=== PATIENT | female | born 1970 | race Two or more races ===

== ENCOUNTER → 2017-02-08 | Outpatient (CLI) | payer OTHER ==
--- NOTE | 2017-02-08 23:17 | ECWPNPC ---
PATIENT NAME: TOMMY DIAZ : 1970 GENDER: FEMALE VISIT DATE: 02/08/2017 DISCHARGE DATE: 02/08/17 1220 VISIT LOCKED DATE TIME: PHYSICIAN: RAVI CASAS RESOURCE: RAVI CASAS REASON FOR APPOINTMENT 1. BACK PAIN HISTORY OF PRESENT ILLNESS FALL RISK SCREENING: SCREENING :NO FALLS IN THE PAST YEAR PAIN SCREENING: PATIENT HAS A COMPLAINT OF ACUTE OR CHRONIC PAIN :YES TODAY'S VISIT: NOTES: PCP DR ALVES AT [facility]. PT REFERRED BY DR JORGE PÉREZ FOR CHRONIC LOW BACK PAIN.REPORTS SHE HAS HAD NO IMAGING DONE OF HER BACK. NOTES THAT THE PAIN IS CENTERED IN LOW BACK WITH RADIATION TOLEFT LEG AND FOOT. LEFT LEG AND FOOT CAN GO NUMB WHEN LAYING ON THE LEG OR STANDING. PAIN STARTED IN SEPTEMBER 2016 WITH NO KNOWN TRAUMAS OR INJURIES. HAS A INTERMITTANT SENSE OF WEAKNESS. NO COLOR CHANGE TO LEFT LEG/FOOT. NO PAIN OR NUMBNESS ON RIGHT. NO SADDLE NUMBNESS. HAS URINARY FREQ DUE TO DIABETES. HAS HAD NO PT. WAS STARTED ON TIZANIDINE FOR BACK PAIN BY PCP - THIS MAKES HER VERY SLEEPY SO SHE DOES NOT TAKE IT IN THE DAYTIME, AND STILL TOSSES AND TURNS AT NITE. REPORTS POOR SLEEP DUE TO BACK PAIN. DENIES RECENT FALLS. . CURRENT MEDICATIONS TAKING ZONISAMIDE 50 MG CAPSULE 1 CAPSULE ORALLY 50 MGS IN A.M./100 MGS Q HS TAKING PLAVIX 75 MG TABLET 1 TABLET ORALLY ONCE A DAY TAKING ASPIR-81 81 MG TABLET DELAYED RELEASE 1 TABLET ORALLY ONCE A DAY TAKING ZANAFLEX 2 MG TABLET 1 TABLET NEEDED ORALLY TWICE DAILY NEEDED TAKING ZOLOFT 100 MG TABLET 1 TABLET ORALLY ONCE A DAY TAKING METOPROLOL TARTRATE 50 MG TABLET 1 TABLET WITH FOOD ORALLY TWICE A DAY TAKING METFORMIN HCL ER 500 MG TABLET EXTENDED RELEASE 24 HOUR 1 TABLET WITH EVENING MEAL ORALLY BID TAKING COLACE 100 MG CAPSULE 1 CAPSULE NEEDED ORALLY ONCE A DAY TAKING SYMBICORT 160-4.5 MCG/ACT AEROSOL 2 PUFFS INHALATION TWICE A DAY TAKING ALBUTEROL SULFATE 1.25 MG/3ML NEBULIZATION SOLUTION 3 ML NEEDED INHALATION EVERY 8 HRS TAKING FERROUS SULFATE 325 (65 FE) MG TABLET DELAYED RELEASE 1 TABLET ORALLY ONCE A DAY TAKING AZELASTINE HCL 0.1 % SOLUTION 1 PUFF IN EACH NOSTRIL NASALLY TWICE A DAY TAKING ALPHAGAN P 0.1 % SOLUTION 1 DROP INTO AFFECTED EYE OPHTHALMIC THREE TIMES A DAY TAKING LATANOPROST 0.005 % SOLUTION 1 DROP INTO AFFECTED EYE IN THE EVENING OPHTHALMIC ONCE A DAY TAKING FLUOCINONIDE 0.05 % CREAM EXTERNALLY MEDICATION LIST REVIEWED AND RECONCILED WITH THE PATIENT PAST MEDICAL HISTORY 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 3 SON(S) - HEALTHY. ONE SISTER WITH MS, ONE SISTER WITH MIGRAINE HEADACHES, HEART DISEASE. SOCIAL HISTORY GENERAL: TOBACCO USE ARE YOU A:FORMER SMOKER SMOKED 1 PPD X 20 YEARS, QUIT 2008 LUNG CANCER SCREENING SMOKING STATUS:FORMER SMOKER ALCOHOL SCREENING POINTS1 INTERPRETATIONNEGATIVE RECREATIONAL DRUG USE DRUG USE?YES HOW OFTEN AND HOW MUCH? SMOKES MARIJUANA ON RARE OCCASIONS (LESS THAN ONCE A MONTH) CAFFEINE CAFFEINE USE?YES HOW OFTEN AND HOW MUCH? 1/2 CUP DAILY OCCUPATION: UNEMPLOYED. DIET: NO CONCENTRATED SWEETS, NO RED MEAT. EXERCISE: WALKS. MARITAL STATUS: . OTHERS AT HOME: CHILD, AND A BOYFRIEND. LANGUAGE LANGUAGES SPOKEN:HONDURAN EDUCATION LEVEL OF EDUCATION:NOT FINISHED HIGH SCHOOL LEARNING BARRIERS / SPECIAL NEEDS BARRIERS TO LEARNING? PT HAS HEARING IMPAIRMENT, HEARING AID IS BROKEN. HEARING IMPAIRED?YES PT HAS HEARING AID RIGHT EAR, STATES IS BROKEN VISION IMPAIRED?NO WEARS GLASSES, HAS CATARACTS COGNITIVELY IMPAIRED?NO READINESS TO LEARN?YES LEARNING PREFERENCES?NO NO PREFERENCES ADVANCE DIRECTIVES HEALTH CARE PROXY?YES TERI SHER, FATHER CONTACT # FOR [facility] [phone] DO YOU HAVE A COPY WITH YOU?NO DO YOU HAVE A DNR?NO WOULD YOU LIKE MORE INFORMATION?NO LIVING WILL?NO WOULD YOU LIKE MORE INFORMATION?NO POWER OF TECHNOLOGY ADVISOR?NO WOULD YOU LIKE MORE INFORMATION?NO HOSPITALIZATION/MAJOR DIAGNOSTIC PROCEDURE WITH SURGERIES REVIEW OF SYSTEMS CONSTITUTIONAL: ANY CHANGE IN YOUR MEDICAL CONDITION? NO . CHILLS NO . FEVER NO . INFECTION: DO YOU HAVE NEW INFECTIONS? YES UTI . DO YOU HAVE HISTORY OF MRSA? NO . MUSCULOSKELETAL: ANY NEW PATTERNS OF PAIN OR NUMBNESS? NO . SYTEMIC LUPUS NO . GASTROENTEROLOGY: ANY NEW CHANGE IN BOWEL CONTROL? NO . BARRETTS ESOPHAGUS NO . CIRRHOSIS NO . HEPATITIS NO . LIVER FAILURE NO . ACID REFLUX NO . UNEXPLAINED WEIGHT LOSS NO . GENITOURINARY: ANY NEW CHANGE IN BLADDER CONTROL? NO . IS THERE A CHANCE YOU COULD BE ? NO . HEMATOLOGY/LYMPH: DO YOU TAKE ANY BLOOD THINNERS? (FOR EXAMPLE- COUMADIN, PLAVIX, AGGRENOX, PLATEL, PRADAXA, OR XARELTO) YES - PLAVIX . WHEN WAS YOUR LAST DOSE? DATE: TIME: . LOW PLATELET COUNT NO . SICKLE CELL DISEASE NO . VON WILLIEBRANDS NO . FACTOR V LEIDEN NO . THALLASEMIA NO . ANEMIA YES . EASY BRUISING NO . NEUROLOGY: HAVE YOU FALLEN IN THE PAST 6 MONTHS? NO . ANY NEW EXTREMITY NUMBNESS OR WEAKNESS? YES CARPAL TUNNEL, SOME NUMBNESS WHEN SHE WALKS IN LEFT LEG FROM HIP TO FOOT. PER PT, DR PÉREZ STATES IT IS DUE TO POOR CIRCULATION . HEAD INJURY NO . DEMENTIA NO . CEREBRAL PALSY NO . MULTIPLE SCLEROSIS NO . DIZZINESS NO . HEADACHE ASSOCIATED WITH PHOTOPHOBIA, INTERMITTENT, POUNDING, SEVERE, SHARP, THROBBING, ADMITS . STROKES NO . VERTIGO NO . CARDIOLOGY: DO YOU HAVE A PACEMAKER OR DEFIBRILLATOR? NO . ANGINA NO . HEART ATTACK YES X 3 . HEART SURGERY YES, BYPASS GRAFTS, STENTS PLACED. FOLLOWS WITH DR LONGO . CONGESTIVE HEART FAILURE/FLUID OVERLOAD NO . CHEST PAIN NO . HIGH BLOOD PRESSURE ON MEDICATION(S) . IRREGULAR HEART BEAT NO . RESPIRATORY: HAVE YOU BEEN SICK IN THE PAST WEEK? NO . FEVER NO . FLU LIKE SYMPTOMS? NO . CPAP NO . BYPAP NO . ASTHMA YES . EMPHYSEMA NO . CHRONIC LUNG DISEASES YES COPD . SHORTNESS OF BREATH ON EXERTION NO . COUGH NO . SNORING NO . INTEGUMENTARY: DO YOU HAVE ANY RASHES OR OPEN SORES? YES PSORIASIS . ALLERGIC/IMMUNO: ARE YOU ALLERGIC TO SHELLFISH OR IV DYE? YES . ANY NEW ALLERGIES? NO . PSYCHIATRIC: DO YOU HAVE THOUGHTS OF HURTING YOURSELF OR SOMEONE ELSE? NO . ARE YOU ABUSED, NEGLECTED, OR IN AN UNSAFE ENVIRONMENT? NO . ENDOCRINOLOGY: ARE YOU DIABETIC? YES - IMPROVING . THYROID DISORDER NO . OTHER: DO YOU NEED ANY PRESCRIPTIONS? NO . IF YES, PLEASE LIST: ____ . ANY NEW PROBLEMS WITH YOUR MEDICATIONS? NO . WHEN DID YOU LAST EAT? ____ . WHEN DID YOU LAST DRINK? ____ . WHAT DID YOU LAST DRINK? ____ . NAME OF PERSON DRIVING YOU HOME? ____ . DO YOU HAVE ANY OTHER QUESTIONS OR CONCERNS YES WOULD LIKE TO DISCUSS SOMETHING FOR HER BACK PAIN . PSYCHOLOGY: BECKS DEPRESSION INVENTORY . DENIES SUICIDAL OR HOMICIDAL IDEATION . REVIEWED BY: PROVIDER: RAVI MELARA . VITAL SIGNS WT 196 LBS, HT 62 IN, BMI 35.84 INDEX, BP 111/75 MM HG, HR 64 /MIN, RR 18 /MIN, TEMP 98.3 F, OXYGEN SAT % 96%, SAFE IN ENV? (Y/N) YES, NA INITIALS 10:43, REVIEWED BY: MAGGIE. EXAMINATION GENERAL EXAMINATION: PSYCHALERT , ORIENTED X 3 , APPROPRIATE MOOD AND AFFECT , GOOD EYE CONTACT, TALKATIVE. HEENT:EDENTOUS, NORMOCEPHALIC, NO LYPHADENOPATHY, NO THYROMEGLY. LUNGS:CLEAR TO AUSCULTATION BILATERALLY, NO WHEEZES, RALES OR RHONCHI. HEART:HEART RATE IRREGULAR, NORMAL S1S2, NO MURMURS, CLICK OR RUBS, NO CAROTID BRUITS. MUSCULOSKELETAL:MUSCLE STRENGTH TESTING 5/5 BILATERAL UPPER EXTREMITIES, AND RIGHT LOWER EXTREMITY. MUSCLE STRENGTH 5-/5 LEFT LOWER EXTREMITY, DISTALLY AND PROXIMALLY. CAN FLEX TO GREATER ATHAN 90 DEGREES AND TOUCH HANDS TO THE FLOOR. COMPLAINS OF STFFNESS AND GRABBING PAIN WHEN RISE BACK TO FULL UPRIGHT POSITION. ABLE TO ROTATE SIDE TO SIDE WITHOUT DIFFICULTY. POSTURE UPRIGHT. GAIT RAPID, NON ANTALGIC. POINT TENDERNESS OVER LUMBAR SPINOUS PROCESSES AND OVER LEFT SACRAL ILIAC JOINT. . EXTREMITIES:NO EDEMA, PULSES 2 PLUS BILATERALLY. SKIN:MULTIPLE DISCREET LESION IN VARIOUS STAGES OF HEELING NOTED CARMINA THE UPPER BACK, ARMS AND FACE.. NEUROLOGIC EXAM:DECREASED SENSATION LEFT LEG FROM THIGH TO FOOT.O SENSORY CHANGES NOTED ON THE RIGHT. DTR 2+ BUE, 3+BLE. NO CLONUS PLANTAR RESPONSE FLEXOR. ASSESSMENTS LUMBAGO WITH SCIATICA, LEFT SIDE - M54.42 (PRIMARY) OTHER CHRONIC PAIN - G89.29 LUMBAR RADICULOPATHY - M54.16 TREATMENT LUMBAGO WITH SCIATICA, LEFT SIDE [facility] MRI SPINE, L.S. WITHOUT [id number] 02/08/2017 12:16:24 PM > LOW BACK PAIN /LEFT LEG RADICULOPATHY NOTES: START PHYSICAL THERAPY - CAN DO THIS IN [place]. CLINICAL NOTES: MS DIAZ CAN NOT TAKE NSAIDS DUE TO HER CARDIAC STATUS AND BECAUSE SHE IS ON BLOODTHINNERS. SHE HAS BEEN ON TIZANIDINE FOR 3 MONTHS BUT THIS IS INEFFECTIVE. SHE WILL BE STARTING PHYSUCAL THERAPY. WE ARE REQUESTING AUTH FOR MRI OF LUMBAR SPINE TO BETTER EVALUATE THE CAUSES OF HER PAIN AND RADICULAR SYMPTOMS. SUSPECT LEFT L5 NERVE ROOT COMPRESSION. WILL EVALUATE FOR POSSIBLE INTERVENTIONAL TREATMENT WITH THE EVIDENCE OF THE MRI. PROCEDURE CODES FA211 ESTABILISHED PATIENT [facility] FACILITY CHARGE DISPOSITION & COMMUNICATION FOLLOW UP 1 MONTH (REASON: NEED AUTH FOR MRI LS SPINE. JSOEPH FOR EMG/NCS DONE WITH DR PÉREZ) ELECTRONICALLY SIGNED BY KATY BLAIR ON 02/08/2017 AT 01:49 PM EDT DISCLAIMER : THIS IS A VISIT SUMMARY EXTRACTED FROM THE [employer] CHART. IT IS NOT A COPY OF THE [employer] PROGRESS NOTE. YULIANA
== END ==
LOC: M PAIN 11:20
PROVIDERS: ATTEND Nurse Practitioner Family
DX: M54.42 Lumbago with sciatica, left side (principal); G89.29 Other chronic pain; M54.16 Radiculopathy, lumbar region; Z79.01 Long term (current) use of anticoagulants; Z79.82 Long term (current) use of aspirin; Z79.899 Other long term (current) drug therapy; Z87.891 Personal history of nicotine dependence; Z91.041 Radiographic dye allergy status

== ENCOUNTER → 2017-03-08 | Outpatient (CLI) | payer OTHER ==
[~2017-03-08] MED LIST: ASPI81TA18; ATOR80TA59; AZIT500T2 PO; CLOP75TA2; DOCQ100C; FERR1TAB8; FOLI1TAB4; GLIP1TAB51 PO; METF500T13 PO; METO50TA7; SERT-138; TIZA4CAP3 PO; TOPI25TA10; TRAM50TA2; ZONI100C2 PO; ZONI50CA3 PO
--- NOTE | 2017-03-13 00:56 | ECWPNPC ---
PATIENT NAME: TOMMY DIAZ : 1970 GENDER: FEMALE VISIT DATE: 03/08/2017 DISCHARGE DATE: 03/08/17 1109 VISIT LOCKED DATE TIME: PHYSICIAN: RAVI CASAS RESOURCE: RAVI CASAS REASON FOR APPOINTMENT 1. BACK PAIN HISTORY OF PRESENT ILLNESS HISTORY OF PRESENT ILLNESS: PAIN THE PATIENT DESCRIBES THE PAIN... FALL RISK SCREENING: SCREENING :NO FALLS IN THE PAST YEAR TODAY'S VISIT: NOTES: RTES PAIN LEVEL TODAY 05/09. NOTES PAIN IS CENTERED IN LOW BACK WITH RADIATION TO BUTTUCKS AND INTO LEGS BILATERALLY. DESCRIBES PAIN ACHING, TENDER, THROBBING AND SORE. IS HAVING DIFFICULT TIME STANDING FOR ANY PERIOD OR GOING ABOUT ACTIVITIES OF DAILY LIVING.. CURRENT MEDICATIONS TAKING ZONISAMIDE 50 MG CAPSULE 1 CAPSULE ORALLY 50 MGS IN A.M./100 MGS Q HS TAKING PLAVIX 75 MG TABLET 1 TABLET ORALLY ONCE A DAY TAKING ASPIR-81 81 MG TABLET DELAYED RELEASE 1 TABLET ORALLY ONCE A DAY TAKING ZANAFLEX 2 MG TABLET 1 TABLET NEEDED ORALLY TWICE DAILY NEEDED TAKING ZOLOFT 100 MG TABLET 1 TABLET ORALLY ONCE A DAY TAKING METOPROLOL TARTRATE 50 MG TABLET 1 TABLET WITH FOOD ORALLY TWICE A DAY TAKING METFORMIN HCL ER 500 MG TABLET EXTENDED RELEASE 24 HOUR 1 TABLET WITH EVENING MEAL ORALLY BID TAKING COLACE 100 MG CAPSULE 1 CAPSULE NEEDED ORALLY ONCE A DAY TAKING SYMBICORT 160-4.5 MCG/ACT AEROSOL 2 PUFFS INHALATION TWICE A DAY TAKING ALBUTEROL SULFATE 1.25 MG/3ML NEBULIZATION SOLUTION 3 ML NEEDED INHALATION EVERY 8 HRS TAKING FERROUS SULFATE 325 (65 FE) MG TABLET DELAYED RELEASE 1 TABLET ORALLY ONCE A DAY TAKING AZELASTINE HCL 0.1 % SOLUTION 1 PUFF IN EACH NOSTRIL NASALLY TWICE A DAY TAKING ALPHAGAN P 0.1 % SOLUTION 1 DROP INTO AFFECTED EYE OPHTHALMIC THREE TIMES A DAY TAKING LATANOPROST 0.005 % SOLUTION 1 DROP INTO AFFECTED EYE IN THE EVENING OPHTHALMIC ONCE A DAY TAKING FLUOCINONIDE 0.05 % CREAM EXTERNALLY PAST MEDICAL HISTORY 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 3 SON(S) - HEALTHY. ONE SISTER WITH MS, ONE SISTER WITH MIGRAINE HEADACHES, HEART DISEASE. SOCIAL HISTORY GENERAL: TOBACCO USE ARE YOU A:FORMER SMOKER SMOKED 1 PPD X 20 YEARS, QUIT 2008 LUNG CANCER SCREENING SMOKING STATUS:FORMER SMOKER ALCOHOL SCREENING DID YOU HAVE A DRINK CONTAINING ALCOHOL IN THE PAST YEAR?YES HOW OFTEN DID YOU HAVE A DRINK CONTAINING ALCOHOL IN THE PAST YEAR?MONTHLY OR LESS (1 POINT) HOW MANY DRINKS DID YOU HAVE ON A TYPICAL DAY WHEN YOU WERE DRINKING IN THE PAST YEAR?1 OR 2 (0 POINTS) HOW OFTEN DID YOU HAVE SIX OR MORE DRINKS ON ONE OCCASION IN THE PAST YEAR?NEVER (0 POINTS) POINTS1 INTERPRETATIONNEGATIVE RECREATIONAL DRUG USE DRUG USE?YES HOW OFTEN AND HOW MUCH? SMOKES MARIJUANA ON RARE OCCASIONS (LESS THAN ONCE A MONTH) CAFFEINE CAFFEINE USE?YES HOW OFTEN AND HOW MUCH? 1/2 CUP DAILY OCCUPATION: UNEMPLOYED. DIET: NO CONCENTRATED SWEETS, NO RED MEAT. EXERCISE: WALKS. MARITAL STATUS: . OTHERS AT HOME: CHILD, AND A BOYFRIEND. LANGUAGE LANGUAGES SPOKEN:POLISH EDUCATION LEVEL OF EDUCATION:NOT FINISHED HIGH SCHOOL LEARNING BARRIERS / SPECIAL NEEDS BARRIERS TO LEARNING? PT HAS HEARING IMPAIRMENT, HEARING AID IS BROKEN. HEARING IMPAIRED?YES PT HAS HEARING AID RIGHT EAR, STATES IS BROKEN VISION IMPAIRED?NO WEARS GLASSES, HAS CATARACTS COGNITIVELY IMPAIRED?NO READINESS TO LEARN?YES LEARNING PREFERENCES?NO NO PREFERENCES ADVANCE DIRECTIVES HEALTH CARE PROXY?YES TERI SHER, FATHER CONTACT # FOR [facility] [phone] DO YOU HAVE A COPY WITH YOU?NO DO YOU HAVE A DNR?NO WOULD YOU LIKE MORE INFORMATION?NO LIVING WILL?NO WOULD YOU LIKE MORE INFORMATION?NO POWER OF SEWER INSPECTOR?NO WOULD YOU LIKE MORE INFORMATION?NO HOSPITALIZATION/MAJOR DIAGNOSTIC PROCEDURE WITH SURGERIES REVIEW OF SYSTEMS REVIEWED BY: PROVIDER: RAVI MELARA . CONSTITUTIONAL: ANY CHANGE IN YOUR MEDICAL CONDITION? ER ON SAT FOR PAIN IN [place]. GAVE HER TRAMADOL . CHILLS NO . FEVER NO . INFECTION: DO YOU HAVE NEW INFECTIONS? NO . DO YOU HAVE HISTORY OF MRSA? NO . MUSCULOSKELETAL: ANY NEW PATTERNS OF PAIN OR NUMBNESS? IN [place] NOW . GASTROENTEROLOGY: ANY NEW CHANGE IN BOWEL CONTROL? NO . GENITOURINARY: ANY NEW CHANGE IN BLADDER CONTROL? NO . IS THERE A CHANCE YOU COULD BE ? NO . HEMATOLOGY/LYMPH: DO YOU TAKE ANY BLOOD THINNERS? (FOR EXAMPLE- COUMADIN, PLAVIX, AGGRENOX, PLATEL, PRADAXA, OR XARELTO) YES / PLAVIX . WHEN WAS YOUR LAST DOSE? DATE: TIME: . NEUROLOGY: HAVE YOU FALLEN IN THE PAST 6 MONTHS? NO . ANY NEW SEIZURES? DENIES ANY RECENT SEIZURES OR EPISODES OF ALTERED MENTAL STATUS . ANY NEW EXTREMITY NUMBNESS OR WEAKNESS? NO . CARDIOLOGY: DO YOU HAVE A PACEMAKER OR DEFIBRILLATOR? NO . RESPIRATORY: HAVE YOU BEEN SICK IN THE PAST WEEK? NO . FEVER NO . FLU LIKE SYMPTOMS? NO . COUGH NO . INTEGUMENTARY: DO YOU HAVE ANY RASHES OR OPEN SORES? PSORIASIS . ALLERGIC/IMMUNO: ARE YOU ALLERGIC TO SHELLFISH OR IV DYE? IV DYE . ANY NEW ALLERGIES? NO . PSYCHIATRIC: DO YOU HAVE THOUGHTS OF HURTING YOURSELF OR SOMEONE ELSE? NO . ARE YOU ABUSED, NEGLECTED, OR IN AN UNSAFE ENVIRONMENT? NO . ENDOCRINOLOGY: ARE YOU DIABETIC? NO . OTHER: DO YOU NEED ANY PRESCRIPTIONS? YES . IF YES, PLEASE LIST: FOR PAIN . ANY NEW PROBLEMS WITH YOUR MEDICATIONS? NO . WHEN DID YOU LAST EAT? ____ . WHEN DID YOU LAST DRINK? ____ . WHAT DID YOU LAST DRINK? ____ . NAME OF PERSON DRIVING YOU HOME? ____ . DO YOU HAVE ANY OTHER QUESTIONS OR CONCERNS NO . VITAL SIGNS WT 198.8 LBS, HT 62 IN, BMI 36.36 INDEX, BP 121/65 MM HG, HR 56 /MIN, RR 16 /MIN, TEMP 97.8 F, OXYGEN SAT % 94%, NA INITIALS TL 1022, REVIEWED BY: NL. EXAMINATION GENERAL EXAMINATION: PSYCHALERT , ORIENTED X 3 , APPROPRIATE MOOD AND AFFECT , GOOD EYE CONTACT, TALKATIVE. LUNGS:CLEAR TO AUSCULTATION BILATERALLY, NO WHEEZES, RALES OR RHONCHI. HEART:HEART RATE IRREGULAR, . MUSCULOSKELETAL:MUSCLE STRENGTH TESTING 5/5 BILATERAL UPPER EXTREMITIES, AND RIGHT LOWER EXTREMITY. MUSCLE STRENGTH 5-/5 LEFT LOWER EXTREMITY, DISTALLY AND PROXIMALLY. E FLOOR. POSTURE UPRIGHT, STIFF . GAIT NON ANTALGIC. POINT TENDERNESS OVER LUMBAR SPINOUS PROCESSES AND OVER LEFT SACRAL ILIAC JOINT. POSITIVE AMAIRANI SIGN LEFT. NEUROLOGIC EXAM:DECREASED SENSATION LEFT LEG FROM THIGH TO FOOT. NO SENSORY CHANGES NOTED ON THE RIGHT. DTR 2+ BUE, 3+BLE. . DIAGNOSTIC TESTS REVIEWEDMRI OF LUMBAR SPINE COMPLETED ON 03/03/17 REVIEWED - DEMONSTRATES L5-S1 BROADBASED DISC PROTRUSION WITH MILD CENTRAL CANAL STENOSIS AND MODERATE BILATERAL LATERAL RECESS NARROWINGS. ASSESSMENTS LUMBAR DISC DISPLACEMENT WITHOUT MYELOPATHY - M51.26 (PRIMARY) LUMBAGO WITH SCIATICA, LEFT SIDE - M54.42 OTHER CHRONIC PAIN - G89.29 LUMBAR RADICULOPATHY - M54.16 TREATMENT LUMBAGO WITH SCIATICA, LEFT SIDE START PREDNISONE TABLET, 20 MG, 1 TABLET, ORALLY, TWICE A DAY FOR 3 DAYS THEN 1/2 TAB TWICE A DAY UNTIL GONE, 30 DAY(S), 9, REFILLS 0 START TRAMADOL HCL TABLET, 50 MG, 1 TABLET NEEDED, ORALLY, EVERY 4 -6 HRS PRN PAIN MDD=3, 30 DAY(S), 90, REFILLS 0 NOTES: MRI SHOWS: L5-S1 BROAD BASED DISC PROTRUSION WITH MILDCENTRAL CANAL STENOSIS AND MODERATE BILATERAL RECESS NARROWNG.TALK TO DR ALVES ABOUT LEFT GREAT TOE ORE AREA. WILL ASK FOR AUTH TO GET PLAVIX ON HOLD FOR 7 DAYS FOR EPIDURAL INJECTION. WILL REQUEST AUTH FOR INTRALAMINAR LUMBAR EPIDURAL INJECTION. PREVENTIVE MEDICINE GAVE INFO ON PREDNISONE. PROCEDURE CODES FA211 ESTABILISHED PATIENT [facility] FACILITY CHARGE DISPOSITION & COMMUNICATION FOLLOW UP 3-4 WEEKS (REASON: WILL REQUEST AUTH FOR INTRALAMINAR LUMBAR EPIDURAL INJECTION) ELECTRONICALLY SIGNED BY KATY BLAIR ON 03/12/2017 AT 08:30 AM EDT DISCLAIMER : THIS IS A VISIT SUMMARY EXTRACTED FROM THE [employer] CHART. IT IS NOT A COPY OF THE [employer] PROGRESS NOTE. MTDD
== END ==
LOC: M PAIN 10:20
PROVIDERS: ATTEND Nurse Practitioner Family
DX: M51.26 Other intervertebral disc displacement, lumbar region (principal); M54.42 Lumbago with sciatica, left side; G89.29 Other chronic pain; M54.16 Radiculopathy, lumbar region; Z79.82 Long term (current) use of aspirin; Z79.84 Long term (current) use of oral hypoglycemic drugs; Z79.899 Other long term (current) drug therapy; Z79.891 Long term (current) use of opiate analgesic; Z91.041 Radiographic dye allergy status

== ENCOUNTER → 2017-03-30 | Outpatient (CLI) | payer OTHER ==
--- NOTE | 2017-04-13 00:41 | ECWPNPC ---
PATIENT NAME: TOMMY DIAZ : 1970 GENDER: FEMALE VISIT DATE: 03/30/2017 DISCHARGE DATE: 03/30/17 1413 VISIT LOCKED DATE TIME: PHYSICIAN: MARGE BRAVO RESOURCE: MARGE BRAVO REASON FOR APPOINTMENT 1. LOW BACK PAIN HISTORY OF PRESENT ILLNESS HISTORY OF PRESENT ILLNESS: PAIN THE PATIENT DESCRIBES THE PAIN... 46 YEAR OLD FEMALE PATIENT WITH HISTORY OF CHRONIC LOW BACK PAIN. PATIENT DESCRIBES TO THE PAIN ACHING, TENDER, AND THROBBING WITH A PAIN SCORE OF 8/10. CURRENTLY THE PATIENT IS USING ZANAFLEX AND TRAMADOL TO AID IN PAIN RELIEF. PATIENT STATES THAT SHE HAS RADICULAR PAIN DOWN THE LEGS. PATIENT DENIES UNEXPLAINABLE WEIGHT LOSS, FEVER, CHILLS, NEW CHANGES ON HER URINARY OR BOWEL CONTROL. FALL RISK SCREENING: SCREENING :NO FALLS IN THE PAST YEAR CURRENT MEDICATIONS TAKING ZONISAMIDE 50 MG CAPSULE 1 CAPSULE ORALLY 50 MGS IN A.M./100 MGS Q HS, NOTES: 03-30 TAKING PLAVIX 75 MG TABLET 1 TABLET ORALLY ONCE A DAY, NOTES: 899 TAKING ASPIR-81 81 MG TABLET DELAYED RELEASE 1 TABLET ORALLY ONCE A DAY, NOTES: 03-30-17899 TAKING ZANAFLEX 2 MG TABLET 1 TABLET NEEDED ORALLY TWICE DAILY NEEDED, NOTES: 03-30-17899 TAKING ZOLOFT 100 MG TABLET 1 TABLET ORALLY ONCE A DAY, NOTES: 03-30-17899 TAKING METOPROLOL TARTRATE 50 MG TABLET 1 TABLET WITH FOOD ORALLY TWICE A DAY, NOTES: 03-30-17799 TAKING METFORMIN HCL ER 500 MG TABLET EXTENDED RELEASE 24 HOUR 1 TABLET WITH EVENING MEAL ORALLY BID, NOTES: 03-30-17899 TAKING COLACE 100 MG CAPSULE 1 CAPSULE NEEDED ORALLY ONCE A DAY, NOTES: 03-30-17899 TAKING SYMBICORT 160-4.5 MCG/ACT AEROSOL 2 PUFFS INHALATION TWICE A DAY, NOTES: 03-29-17899 TAKING ALBUTEROL SULFATE 1.25 MG/3ML NEBULIZATION SOLUTION 3 ML NEEDED INHALATION EVERY 8 HRS, NOTES: 7NOT IN A WHILE TAKING FERROUS SULFATE 325 (65 FE) MG TABLET DELAYED RELEASE 1 TABLET ORALLY ONCE A DAY, NOTES: 03-30-17899 TAKING AZELASTINE HCL 0.1 % SOLUTION 1 PUFF IN EACH NOSTRIL NASALLY TWICE A DAY, NOTES: 03-30-17899 TAKING ALPHAGAN P 0.1 % SOLUTION 1 DROP INTO AFFECTED EYE OPHTHALMIC THREE TIMES A DAY, NOTES: 03-29-17899 TAKING LATANOPROST 0.005 % SOLUTION 1 DROP INTO AFFECTED EYE IN THE EVENING OPHTHALMIC ONCE A DAY, NOTES: 03-29-17899 TAKING FLUOCINONIDE 0.05 % CREAM EXTERNALLY , NOTES: 03-29-17899 TAKING PREDNISONE 20 MG TABLET 1 TABLET ORALLY TWICE A DAY FOR 3 DAYS THEN 1/2 TAB TWICE A DAY UNTIL GONE, NOTES: 03-08-17899 TAKING TRAMADOL HCL 50 MG TABLET 1 TABLET NEEDED ORALLY EVERY 4 -6 HRS PRN PAIN MDD=3, NOTES: 03-30-17899 MEDICATION LIST REVIEWED AND RECONCILED WITH THE PATIENT PAST MEDICAL HISTORY 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 CONSTITUTIONAL: ANY CHANGE IN YOUR MEDICAL CONDITION? NO . CHILLS NO . FEVER NO . INFECTION: DO YOU HAVE NEW INFECTIONS? NO . DO YOU HAVE HISTORY OF MRSA? NO . MUSCULOSKELETAL: ANY NEW PATTERNS OF PAIN OR NUMBNESS? NO . GASTROENTEROLOGY: ANY NEW CHANGE IN BOWEL CONTROL? NO . GENITOURINARY: ANY NEW CHANGE IN BLADDER CONTROL? NO . IS THERE A CHANCE YOU COULD BE ? NO . HEMATOLOGY/LYMPH: DO YOU TAKE ANY BLOOD THINNERS? (FOR EXAMPLE- COUMADIN, PLAVIX, AGGRENOX, PLATEL, PRADAXA, OR XARELTO) NO . WHEN WAS YOUR LAST DOSE? DATE: TIME: . NEUROLOGY: HAVE YOU FALLEN IN THE PAST 6 MONTHS? NO . ANY NEW EXTREMITY NUMBNESS OR WEAKNESS? NO . CARDIOLOGY: DO YOU HAVE A PACEMAKER OR DEFIBRILLATOR? NO . RESPIRATORY: HAVE YOU BEEN SICK IN THE PAST WEEK? NO . FEVER NO . FLU LIKE SYMPTOMS? NO . COUGH NO . INTEGUMENTARY: DO YOU HAVE ANY RASHES OR OPEN SORES? NO . ALLERGIC/IMMUNO: ARE YOU ALLERGIC TO SHELLFISH OR IV DYE? NO . ANY NEW ALLERGIES? NO . PSYCHIATRIC: DO YOU HAVE THOUGHTS OF HURTING YOURSELF OR SOMEONE ELSE? NO . ARE YOU ABUSED, NEGLECTED, OR IN AN UNSAFE ENVIRONMENT? NO . ENDOCRINOLOGY: ARE YOU DIABETIC? NO . OTHER: DO YOU NEED ANY PRESCRIPTIONS? NO . IF YES, PLEASE LIST: ____ . ANY NEW PROBLEMS WITH YOUR MEDICATIONS? NO . WHEN DID YOU LAST EAT? ____ . WHEN DID YOU LAST DRINK? ____ . WHAT DID YOU LAST DRINK? ____ . NAME OF PERSON DRIVING YOU HOME? ____ . DO YOU HAVE ANY OTHER QUESTIONS OR CONCERNS NO . VITAL SIGNS WT 198 LBS, HT 62 IN, BMI 36.21 INDEX, BP 103/58 MM HG, HR 54 /MIN, RR 16 /MIN, TEMP 98.6 F, OXYGEN SAT % 96%, SAFE IN ENV? (Y/N) YES, NA INITIALS SC 11:53, REVIEWED BY: KG. EXAMINATION : PATIENT IS ALERT O X 3 AND COOPERATIVE. TENDERNESS IN THE LOWER BACK AND PARASPINAL MUSCLE GROUP. MRI DONE ON 03/03/17 SHOWS A DISC PROTRUSION AT L5-S1 WIT CANAL STENOSIS. ASSESSMENTS INTERVERTEBRAL DISC DISORDERS WITH RADICULOPATHY, LUMBOSACRAL REGION - M51.17 (PRIMARY) TREATMENT INTERVERTEBRAL DISC DISORDERS WITH RADICULOPATHY, LUMBOSACRAL REGION NOTES: WE DISCUSSED SEVERAL ISSUES WITH MRS. DIAZ'S PAIN MANAGEMENT CASE. AT THIS TIME THE PATIENT WILL CONTINUE WITH THE SAME MEDICATION REGIME BEFORE. DUE TO THE RADICULAR PAIN AND THE DISC PROTRUSION THE PATIENT IS A GOOD CANDIDATE FOR THE LUMBAR EPIDURAL. WE DISCUSSED THE RISKS, BENENFITS, AND ALTNERATIVES OF THE INJECTION AND THE PATIENT WOULD LIKE TO PROCEED. PATIENT WAS REMINDED TO STOP PLAVIX 7 DAYS PRIOR TO THE INJECTION. INSTRUCTIONS WERE GIVEN, QUESTIONS WERE ANSWERED, PATIENT REPORTS UNDERSTANDING AND AGREES WITH THE PLAN. I, MELINA SCHMIDT, DOCUMENTED THE ABOVE INFORMATION ACTING A SCRIBE FOR DR. BRAVO. I HAVE REVIEWED THE ABOVE DOCUMENT, WRITTEN BY MELINA MORIN AND I VERIFY THAT IT IS ACCURATE. PROCEDURE CODES FA211 ESTABILISHED PATIENT [facility] FAC[facility] CHARGE [id number] DOC MEDS VERIFIED W/PT OR RE [id number] PAIN ASSESS POS TOOL F/U PLAN DOC DISPOSITION & COMMUNICATION FOLLOW UP LESI AFTER APPROVAL ELECTRONICALLY SIGNED BY MARGE BRAVO MD ON 04/12/2017 AT 08:28 PM EDT DISCLAIMER : THIS IS A VISIT SUMMARY EXTRACTED FROM THE [employer] CHART. IT IS NOT A COPY OF THE [employer] PROGRESS NOTE. YULIANA
== END ==
LOC: M PAIN 11:40
PROVIDERS: ATTEND Anesthesiology
DX: G89.29 Other chronic pain (principal); M51.17 Intervertebral disc disorders with radiculopathy, lumbosacral region; G43.909 Migraine, unspecified, not intractable, without status migrainosus; E11.9 Type 2 diabetes mellitus without complications; J44.9 Chronic obstructive pulmonary disease, unspecified; I10 Essential (primary) hypertension; E78.00 Pure hypercholesterolemia, unspecified; Z91.041 Radiographic dye allergy status; Z79.82 Long term (current) use of aspirin; Z79.84 Long term (current) use of oral hypoglycemic drugs; Z79.899 Other long term (current) drug therapy

== ENCOUNTER → 2017-05-05 | Outpatient (CLI) | payer OTHER ==
[~2017-05-05] MED LIST changes: +LIDOCAINE 1% SDV INJ 30 ML VIAL As Ordered ONE; +diazePAM 5 MG TAB As Ordered ONE; +methylPREDNISolone SUSP 40 MG/ML (DEPO-medrol) VIAL (J1030) As Ordered ONE; +oxyCODONE 5MG TAB As Ordered ONE
--- NOTE | 2017-05-05 14:15 | REP ---
Partial lumbar spine series: Three views . History: Injection procedure for pain. 10 seconds of fluoroscopy time is reported. Findings: A sequence of three fluoroscopically obtained last image hold procedural spot radiographs of the lumbar spine document needle position and contrast injection associated with injection procedure. Signed by Marcelo Newman MD 05/05/2017 02:06 P
--- NOTE | 2017-05-06 00:25 | ECWPNPC ---
PATIENT NAME: TOMMY DIAZ : 1970 GENDER: FEMALE VISIT DATE: 05/05/2017 DISCHARGE DATE: 05/05/17 1343 VISIT LOCKED DATE TIME: PHYSICIAN: MARGE BRAVO RESOURCE: MARGE BRAVO REASON FOR APPOINTMENT 1. LESI HISTORY OF PRESENT ILLNESS HISTORY OF PRESENT ILLNESS: PAIN THE PATIENT DESCRIBES THE PAIN... FALL RISK SCREENING: SCREENING :NO FALLS IN THE PAST YEAR CURRENT MEDICATIONS TAKING ZONISAMIDE 50 MG CAPSULE 1 CAPSULE ORALLY 50 MGS IN A.M./100 MGS Q HS, NOTES: 05/04/17799 TAKING PLAVIX 75 MG TABLET 1 TABLET ORALLY ONCE A DAY, NOTES: 04/27/17 1000 TAKING ASPIR-81 81 MG TABLET DELAYED RELEASE 1 TABLET ORALLY ONCE A DAY, NOTES: 05/04/17799 TAKING ZANAFLEX 2 MG TABLET 1 TABLET NEEDED ORALLY TWICE DAILY NEEDED, NOTES: 05/04/17799 TAKING ZOLOFT 100 MG TABLET 1 TABLET ORALLY ONCE A DAY, NOTES: 05/04/17799 TAKING METOPROLOL TARTRATE 50 MG TABLET 1 TABLET WITH FOOD ORALLY TWICE A DAY, NOTES: 05/04/17799 TAKING METFORMIN HCL ER 500 MG TABLET EXTENDED RELEASE 24 HOUR 1 TABLET WITH EVENING MEAL ORALLY BID, NOTES: 05/04/17799 TAKING COLACE 100 MG CAPSULE 1 CAPSULE NEEDED ORALLY ONCE A DAY, NOTES: 05/04/17799 TAKING SYMBICORT 160-4.5 MCG/ACT AEROSOL 2 PUFFS INHALATION TWICE A DAY, NOTES: 05/04/17799 TAKING ALBUTEROL SULFATE 1.25 MG/3ML NEBULIZATION SOLUTION 3 ML NEEDED INHALATION EVERY 8 HRS, NOTES: 7NOT IN A WHILE TAKING FERROUS SULFATE 325 (65 FE) MG TABLET DELAYED RELEASE 1 TABLET ORALLY ONCE A DAY, NOTES: 05/04/17799 TAKING AZELASTINE HCL 0.1 % SOLUTION 1 PUFF IN EACH NOSTRIL NASALLY TWICE A DAY, NOTES: NOT IN A WHILE TAKING ALPHAGAN P 0.1 % SOLUTION 1 DROP INTO AFFECTED EYE OPHTHALMIC THREE TIMES A DAY, NOTES: LAST MONTH TAKING LATANOPROST 0.005 % SOLUTION 1 DROP INTO AFFECTED EYE IN THE EVENING OPHTHALMIC ONCE A DAY, NOTES: LAST MONTH TAKING FLUOCINONIDE 0.05 % CREAM EXTERNALLY , NOTES: 05/04/17799 TAKING PREDNISONE 20 MG TABLET 1 TABLET ORALLY TWICE A DAY FOR 3 DAYS THEN 1/2 TAB TWICE A DAY UNTIL GONE, NOTES: 05/04/17799 TAKING TRAMADOL HCL 50 MG TABLET 1 TABLET NEEDED ORALLY EVERY 4 -6 HRS PRN PAIN MDD=3, NOTES: 05/04/17799 MEDICATION LIST REVIEWED AND RECONCILED WITH THE PATIENT PAST MEDICAL HISTORY 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 CONSTITUTIONAL: ANY CHANGE IN YOUR MEDICAL CONDITION? NO . CHILLS NO . FEVER NO . INFECTION: DO YOU HAVE NEW INFECTIONS? NO . DO YOU HAVE HISTORY OF MRSA? NO . MUSCULOSKELETAL: ANY NEW PATTERNS OF PAIN OR NUMBNESS? NO . GASTROENTEROLOGY: ANY NEW CHANGE IN BOWEL CONTROL? NO . GENITOURINARY: ANY NEW CHANGE IN BLADDER CONTROL? NO . IS THERE A CHANCE YOU COULD BE ? NO . HEMATOLOGY/LYMPH: DO YOU TAKE ANY BLOOD THINNERS? (FOR EXAMPLE- COUMADIN, PLAVIX, AGGRENOX, PLATEL, PRADAXA, OR XARELTO) NO . WHEN WAS YOUR LAST DOSE? DATE: TIME: . NEUROLOGY: HAVE YOU FALLEN IN THE PAST 6 MONTHS? NO . ANY NEW EXTREMITY NUMBNESS OR WEAKNESS? NO . CARDIOLOGY: DO YOU HAVE A PACEMAKER OR DEFIBRILLATOR? NO . RESPIRATORY: HAVE YOU BEEN SICK IN THE PAST WEEK? NO . FEVER NO . FLU LIKE SYMPTOMS? NO . COUGH NO . INTEGUMENTARY: DO YOU HAVE ANY RASHES OR OPEN SORES? YES, PT C/O PSORIASIS SORES ALL OVER . ALLERGIC/IMMUNO: ARE YOU ALLERGIC TO SHELLFISH OR IV DYE? NO . ANY NEW ALLERGIES? NO . PSYCHIATRIC: DO YOU HAVE THOUGHTS OF HURTING YOURSELF OR SOMEONE ELSE? NO . ARE YOU ABUSED, NEGLECTED, OR IN AN UNSAFE ENVIRONMENT? NO . ENDOCRINOLOGY: ARE YOU DIABETIC? YES . OTHER: DO YOU NEED ANY PRESCRIPTIONS? NO . IF YES, PLEASE LIST: ____ . ANY NEW PROBLEMS WITH YOUR MEDICATIONS? NO . WHEN DID YOU LAST EAT? ____ . WHEN DID YOU LAST DRINK? ____ . WHAT DID YOU LAST DRINK? ____ . NAME OF PERSON DRIVING YOU HOME? ____ . DO YOU HAVE ANY OTHER QUESTIONS OR CONCERNS NO . VITAL SIGNS WT 198 LBS, HT 62 IN, BMI 36.21 INDEX, BP 164/78 MM HG, HR 66 /MIN, RR 16 /MIN, TEMP 96.4 F, OXYGEN SAT % 96%, NA INITIALS SC 10:37, REVIEWED BY: VD. ASSESSMENTS INTERVERTEBRAL DISC DISORDER WITH RADICULOPATHY OF LUMBOSACRAL REGION - M51.17 (PRIMARY) PROCEDURES PRE PROCEDURE DIAGNOSIS LUMBAR DISC DISORDER WITH RADICULOPATHY POST PROCEDURE DIAGNOSIS LUMBAR DISC DISORDER WITH RADICULOPATHY PROCEDURE LUMBAR EPIDURAL STEROID INJECTION UNDER FLUOROSCOPIC GUIDANCE SURGEON DR. MARGE BRAVO MASTER CARPENTER NONE ANESTHESIA LOCAL PRE PROCEDURE NOTE THE PATIENT HAS A HISTORY OF CHRONIC LOW BACK PAIN. I EVALUATE THE PATIENT AND REVIEWED THE CHART. I WENT OVER THE RISKS, ALTERNATIVES, AND BENEFITS ASSOCIATED WITH THIS PROCEDURE. THE PATIENT WOULD LIKE TO PROCEED AND GIVE CONSENT TO PERFORMED THE PROCEDURE. THE PATIENT DENIES UNEXPLAINABLE WEIGHT LOSS, FEVER, CHILLS, OR NEW CHANGES IN URINARY OR BOWEL CONTROL. DESCRIPTION OF PROCEDURE THE PATIENT WAS BROUGHT TO THE PROCEDURE ROOM AND PLACED IN THE PRONE POSITION. THE LUMBOSACRAL AREA WAS CLEANED WITH BETADINE SOLUTION AND DRAPED ASEPTICALLY. THE PROCEDURE WAS DONE UNDER STERILE CONDITIONS. I CHECKED LATERALITY AND THE LEVEL WHERE THE PROCEDURE WAS GOING TO BE PERFORMED WITH THE PATIENT AND THE SUPPORTING STAFF AT THE MOMENT OF THE TIME OUT IN THE PROCEDURE ROOM. UNDER FLUOROSCOPIC GUIDANCE, THE TARGET POINT WAS SELECTED AT THE INTERLAMINAR LEVEL OF L5-S1. LIDOCAINE WAS USED TO NUMB THE SKIN AND THE SUBCUTANEOUS TISSUE BELOW IT. EPIDURAL TUOHY NEEDLE, 17-GAUGE, WAS ADVANCED UNDER FLUOROSCOPIC GUIDANCE AND FOLLOWING PATIENT FEEDBACK UNTIL THE EPIDURAL SPACE WAS REACHED, 7 CM DEEP INTO THE SKIN BY THE LOSS OF RESISTANCE TECHNIQUE. ISOVUE M DYE 30%, 0.25 ML, WAS INJECTED SHOWING ADEQUATE SPREAD OF THE DYE. THEN, A SOLUTION OF 3 ML OF NORMAL SALINE WITH DEPO-MEDROL 60 MG WAS INJECTED SLOWLY FOLLOWING PATIENT FEEDBACK. THERE WAS NO EVIDENCE OF BLOOD, PARESTHESIA OR CEREBROSPINAL FLUID DURING THE PROCEDURE. THE PATIENT WAS SENT TO THE RECOVERY ROOM. THE PATIENT WAS MOVING THE EXTREMITIES AND DOING WELL. THERE WAS NO COMPLICATION DURING THE PROCEDURE. FLUOROSCOPY TIME WAS 10 SECONDS. POST PROCEDURE NOTE THE PATIENT WILL BE SEEN IN A FOLLOW UP IN THE NEXT FEW WEEKS. INSTRUCTIONS WERE GIVEN, QUESTIONS WERE ANSWERED, AND THE PATIENT EXPRESSED UNDERSTANDING AND AGREES WITH THE PLAN. I, MELINA SCHMIDT, DOCUMENTED THE ABOVE INFORMATION ACTING A SCRIBE FOR DR. BRAVO. I HAVE REVIEWED THE ABOVE DOCUMENT, WRITTEN BY MELINA DIEHLIBKaya AND I VERIFY THAT IT IS ACCURATE DIAGNOSTIC IMAGING [facility] FLUORO GUIDE SPINE INJECTION (PAIN)[id number] PROCEDURE CODES 30356 LUMBAR/SACRAL W/ IMAGING 6045F RADXPS IN END [id number] PXD DISPOSITION & COMMUNICATION FOLLOW UP 3 WEEKS ELECTRONICALLY SIGNED BY MARGE BRAVO MD ON 05/05/2017 AT 05:30 PM EDT DISCLAIMER : THIS IS A VISIT SUMMARY EXTRACTED FROM THE [employer] CHART. IT IS NOT A COPY OF THE [employer] PROGRESS NOTE. MTDD
== END ==
LOC: M PAIN 10:30
PROVIDERS: ATTEND Anesthesiology
DX: G89.29 Other chronic pain (principal); M51.17 Intervertebral disc disorders with radiculopathy, lumbosacral region; M54.5 Low back pain; E11.9 Type 2 diabetes mellitus without complications; J44.9 Chronic obstructive pulmonary disease, unspecified; I10 Essential (primary) hypertension; E78.00 Pure hypercholesterolemia, unspecified; D64.9 Anemia, unspecified; Z79.84 Long term (current) use of oral hypoglycemic drugs; Z79.899 Other long term (current) drug therapy; Z79.891 Long term (current) use of opiate analgesic; Z91.041 Radiographic dye allergy status
CPT/HCPCS: 62323; J1030

== ENCOUNTER 2017-05-19 13:54 | Emergency (ER) | payer OTHER ==
[2017-05-19] MEDS ORDERED: ASPI81TA18 (14:19)
[2017-05-19] MEDS ORDERED: DOCQ100C (14:19)
[2017-05-19] MEDS ORDERED: ATOR80TA59 (14:19)
[2017-05-19] MEDS ORDERED: SERT-138 (14:19)
[2017-05-19] MEDS ORDERED: TRAM50TA2 (14:19)
[2017-05-19] MEDS ORDERED: FERR1TAB8 (14:19)
[2017-05-19] MEDS ORDERED: ZONI50CA3 PO (14:19)
[2017-05-19] MEDS ORDERED: FOLI1TAB4 (14:19)
[2017-05-19] MEDS ORDERED: GLIP1TAB51 PO (14:19)
[2017-05-19] MEDS ORDERED: ZONI100C2 PO (14:19)
[2017-05-19] MEDS ORDERED: METF500T13 PO (14:19)
[2017-05-19] MEDS ORDERED: TOPI25TA10 (14:19)
[2017-05-19] MEDS ORDERED: TIZA4CAP3 PO (14:19)
[2017-05-19] MEDS ORDERED: CLOP75TA2 (14:19)
[2017-05-19] MEDS ORDERED: METO50TA7 (14:19)
[2017-05-19] MEDS ORDERED: MORPHINE 2 MG/ML 1ML SYRINGE IV PRN (14:30)
[2017-05-19] MEDS ORDERED: IPRATROPIUM 0.5MG/ALBUTEROL 2.5MG INH SOL UD 3ML (DUONEB)(J7620) NEB ONE (14:30)
[2017-05-19 14:58] LABS: BASO # 0.1 K/mm3 (0.0-0.2); BASO % 0.6 % (0.0-1.0); EOS # 0.2 K/mm3 (0.0-0.50); EOS % 1.8 % (0.0-3.0); LARGE UNSTAINED CELL # 0.2 K/mm3 (0.0-0.4); LARGE UNSTAINED CELL % 1.8 % (0.0-4.0); LYMPH # 1.5 K/mm3 (1.5-4.5); LYMPH % 15.5 % (24.0-44.0); MEAN CORPUSCULAR HGB CONC 34.1 g/dl (32.0-36.5); MEAN CORPUSCULAR VOLUME 90.9 fl (80.0-96.0); MONO # 0.5 K/mm3 (0.0-0.8); NEUTROPHILS # 7.5 K/mm3 (1.8-7.7); NEUTROPHILS % 75.3 % (36.0-66.0); PLATELET COUNT, AUTOMATED 318 k/mm3 (150-450); RED CELL DISTRIBUTION WIDTH 12.9 % (11.5-14.5); WHITE BLOOD COUNT 9.9 K/mm3 (4.0-10.0)
[2017-05-19 14:59] LABS: ALBUMIN 3.6 GM/DL (3.2-5.2); ALBUMIN/GLOBULIN RATIO 0.95 (1.00-1.93); ALKALINE PHOSPHATASE 122 U/L (45-117); ALT/SGPT 60 U/L (12-78); ANION GAP 7 MEQ/L (8-16); AST/SGOT 51 U/L (15-37); BILIRUBIN,DIRECT 0.2 MG/DL (0.0-0.2); BILIRUBIN,TOTAL 0.5 MG/DL (0.2-1.0); BLOOD UREA NITROGEN 18 MG/DL (7-18); CALCIUM LEVEL 9.2 MG/DL (8.5-10.1); CARBON DIOXIDE LEVEL 27 MEQ/L (21-32); CHLORIDE LEVEL 104 MEQ/L (98-107); CREATININE FOR GFR 0.69 MG/DL (0.55-1.02); GLOMERULAR FILTRATION RATE > 60.0 (>58); GLUCOSE, FASTING 310 MG/DL (70-105); POTASSIUM SERUM 4.1 MEQ/L (3.5-5.1); SODIUM LEVEL 138 MEQ/L (136-145); TOTAL PROTEIN 7.4 GM/DL (6.4-8.2)
[2017-05-19 15:04] LABS: FREE T4 0.94 NG/DL (0.76-1.46)
[2017-05-19 15:05] LABS: INR 1.02
[2017-05-19 17:25] LABS: CONTROL LINE HCG INT CTR LINE PRESENT
--- NOTE | 2017-05-19 18:34 | REP ---
CHEST, PA AND LATERAL: 05/19/2017. Clinical history: Chest pain. Comparison: No prior study. Findings: There are sternotomy wires intact. The lungs are adequately inflated and without pleural effusion, lateral pleural thickening, infiltrate, atelectasis or mass. No pneumothorax. The heart is not enlarged. There is no vascular redistribution or edema. The aorta and airway are intact. Bony thorax shows no acute compression deformity. No free air under the diaphragm. Impression: 1. Prior sternotomy but otherwise negative PA chest. Signed by Jeronimo Ortega MD 05/19/2017 08:07 P
[2017-05-19 20:00] VITALS: BP 154/84
[2017-05-19] MEDS ORDERED: AZIT500T2 PO (20:07)
[2017-05-19] MEDS ORDERED: LevoFLOXacin 500 MG TABLET PO ONE (20:15)
--- NOTE | 2017-05-20 08:23 | ECGEPIP ---
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
--- NOTE | 2017-05-22 07:59 | ECGEPIP ---
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
== END 2017-05-19 20:18 | disposition home or self-care (01) ==
LOC: M ED 13:54
DX: J06.9 Acute upper respiratory infection, unspecified (principal); I10 Essential (primary) hypertension; J44.9 Chronic obstructive pulmonary disease, unspecified; E11.9 Type 2 diabetes mellitus without complications; Z87.891 Personal history of nicotine dependence

== ENCOUNTER → 2017-09-09 | Outpatient (CLI) | payer OTHER | LOC: M PAIN 13:15 | DX: M51.26 Other intervertebral disc displacement, lumbar region (principal); M54.42 Lumbago with sciatica, left side; G89.29 Other chronic pain; M54.16 Radiculopathy, lumbar region; E11.9 Type 2 diabetes mellitus without complications; I10 Essential (primary) hypertension; J44.9 Chronic obstructive pulmonary disease, unspecified; Z79.01 Long term (current) use of anticoagulants; Z79.82 Long term (current) use of aspirin; Z79.84 Long term (current) use of oral hypoglycemic drugs; Z79.899 Other long term (current) drug therapy; Z91.041 Radiographic dye allergy status; Z88.8 Allergy status to other drugs, medicaments and biological substances | CPT/HCPCS: G0463 ==

== ENCOUNTER → 2017-11-16 | Outpatient (CLI) | payer OTHER ==
[~2017-11-16] MED LIST changes: -ASPI81TA18; -ATOR80TA59; -AZIT500T2 PO; -CLOP75TA2; -DOCQ100C; -FERR1TAB8; -FOLI1TAB4; -GLIP1TAB51 PO; +ISOVUE-M 300 61% 15ML VIAL (Q9967) As Ordered; +LIDOCAINE 1% SDV INJ 30 ML VIAL As Ordered; -LIDOCAINE 1% SDV INJ 30 ML VIAL As Ordered ONE; -METF500T13 PO; -METO50TA7; -SERT-138; -TIZA4CAP3 PO; -TOPI25TA10; -TRAM50TA2; -ZONI100C2 PO; -ZONI50CA3 PO; +diazePAM 5 MG TAB As Ordered; -diazePAM 5 MG TAB As Ordered ONE; +methylPREDNISolone SUSP 40 MG/ML (DEPO-medrol) VIAL (J1030) As Ordered; -methylPREDNISolone SUSP 40 MG/ML (DEPO-medrol) VIAL (J1030) As Ordered ONE; +oxyCODONE 5MG TAB As Ordered; -oxyCODONE 5MG TAB As Ordered ONE
== END ==
LOC: M PAIN 11:15
DX: G89.29 Other chronic pain (principal); M51.17 Intervertebral disc disorders with radiculopathy, lumbosacral region; J44.9 Chronic obstructive pulmonary disease, unspecified; L40.9 Psoriasis, unspecified; E11.9 Type 2 diabetes mellitus without complications; I10 Essential (primary) hypertension; Z91.041 Radiographic dye allergy status; Z88.8 Allergy status to other drugs, medicaments and biological substances
CPT/HCPCS: J1030

== ENCOUNTER → 2018-04-07 | Outpatient (CLI) | payer OTHER | LOC: M PAIN 13:30 | DX: M51.26 Other intervertebral disc displacement, lumbar region (principal); M54.42 Lumbago with sciatica, left side; G89.29 Other chronic pain; M54.16 Radiculopathy, lumbar region; E11.9 Type 2 diabetes mellitus without complications; I10 Essential (primary) hypertension; J44.9 Chronic obstructive pulmonary disease, unspecified; E78.00 Pure hypercholesterolemia, unspecified; G43.909 Migraine, unspecified, not intractable, without status migrainosus; Z79.82 Long term (current) use of aspirin; Z79.01 Long term (current) use of anticoagulants; Z79.84 Long term (current) use of oral hypoglycemic drugs; Z79.891 Long term (current) use of opiate analgesic; Z79.899 Other long term (current) drug therapy; Z91.041 Radiographic dye allergy status; Z88.8 Allergy status to other drugs, medicaments and biological substances; Z95.1 Presence of aortocoronary bypass graft; Z87.891 Personal history of nicotine dependence | CPT/HCPCS: G0463 ==

== ENCOUNTER → 2018-05-23 | Outpatient (CLI) | payer OTHER | LOC: M PAIN 11:15 | DX: M51.17 Intervertebral disc disorders with radiculopathy, lumbosacral region (principal); M48.07 Spinal stenosis, lumbosacral region; G43.909 Migraine, unspecified, not intractable, without status migrainosus; E11.9 Type 2 diabetes mellitus without complications; D64.9 Anemia, unspecified; J44.9 Chronic obstructive pulmonary disease, unspecified; I10 Essential (primary) hypertension; E78.00 Pure hypercholesterolemia, unspecified; L40.9 Psoriasis, unspecified; Z87.891 Personal history of nicotine dependence; Z79.899 Other long term (current) drug therapy; Z95.5 Presence of coronary angioplasty implant and graft; Z91.041 Radiographic dye allergy status; Z88.8 Allergy status to other drugs, medicaments and biological substances | CPT/HCPCS: J1030 ==

== ENCOUNTER → 2018-07-20 | Outpatient (CLI) | payer OTHER | LOC: M PAIN 10:30 | DX: M46.1 Sacroiliitis, not elsewhere classified (principal); E11.9 Type 2 diabetes mellitus without complications; J44.9 Chronic obstructive pulmonary disease, unspecified; I10 Essential (primary) hypertension; E78.00 Pure hypercholesterolemia, unspecified; G43.909 Migraine, unspecified, not intractable, without status migrainosus; L40.9 Psoriasis, unspecified; Z79.84 Long term (current) use of oral hypoglycemic drugs; Z79.82 Long term (current) use of aspirin; Z79.899 Other long term (current) drug therapy; Z88.8 Allergy status to other drugs, medicaments and biological substances; Z91.041 Radiographic dye allergy status; Z86.79 Personal history of other diseases of the circulatory system; Z86.69 Personal history of other diseases of the nervous system and sense organs; Z87.891 Personal history of nicotine dependence | CPT/HCPCS: G0463 ==

== ENCOUNTER → 2018-10-04 | Outpatient (CLI) | payer OTHER ==
[~2018-10-04] MED LIST changes: +ASPI81TA52; +ATOR80TA59; +AZIT500T2 PO; +BUPIVACAINE HCL 0.25% 30 ML VIAL As Ordered ONE; +CLOP75TA2; +DOCQ100C5; +FERR1TAB8; +FOLI1TAB11; +GLIP10TA18 PO; -ISOVUE-M 300 61% 15ML VIAL (Q9967) As Ordered; -LIDOCAINE 1% SDV INJ 30 ML VIAL As Ordered; +LIDOCAINE 1% SDV INJ 30 ML VIAL As Ordered ONE; +METF500T13 PO; +METO50TA7; +SERT-138; +TIZA4CAP PO; +TOPI25TA10; +TRAM50TA2; +TRIAMCINOLONE ACETONIDE SUSP 40 MG/ML VIAL (J3301) As Ordered ONE; +ZONI100C2 PO; +ZONI50CA3 PO; -diazePAM 5 MG TAB As Ordered; +diazePAM 5 MG TAB As Ordered ONE; +diphenhydrAMINE 25 MG CAP As Ordered ONE; -methylPREDNISolone SUSP 40 MG/ML (DEPO-medrol) VIAL (J1030) As Ordered; -oxyCODONE 5MG TAB As Ordered; +oxyCODONE 5MG TAB As Ordered ONE
--- NOTE | 2018-10-04 14:38 | REP ---
Bilateral SI joint series: Four views. History: Bilateral SI joint injection for pain. 8 seconds of fluoroscopy time is reported. Findings: A sequence of four last image hold fluoroscopically obtained spot radiographs of the SI joints document various needle positions associated with bilateral SI joint injection procedure. Electronically Signed by Marcelo Newman MD 10/04/2018 08:39 P
--- NOTE | 2018-10-15 23:40 | ECWPNPC ---
PATIENT NAME: TOMMY DIAZ : 1970 GENDER: FEMALE VISIT DATE: 10/04/2018 DISCHARGE DATE: 10/04/18 1231 VISIT LOCKED DATE TIME: PHYSICIAN: MARGE BRAVO MD RESOURCE: MARGE BRAVO MD REASON FOR APPOINTMENT 1. ANIL SIJ HISTORY OF PRESENT ILLNESS HISTORY OF PRESENT ILLNESS: PAIN THE PATIENT DESCRIBES THE PAIN... FALL RISK SCREENING: SCREENING :NO FALLS IN THE PAST YEAR CURRENT MEDICATIONS TAKING GLIPIZIDE 5 MG TABLET 1 TABLET ORALLY ONCE A DAY, NOTES: 09/27/18 TAKING ZONISAMIDE 50 MG CAPSULE 1 CAPSULE ORALLY 50 MGS IN A.M./100 MGS Q HS, NOTES: 09/27/18 TAKING ASPIR-81 81 MG TABLET DELAYED RELEASE 1 TABLET ORALLY ONCE A DAY, NOTES: 09/27/18 TAKING ZOLOFT 100 MG TABLET 1 TABLET ORALLY ONCE A DAY, NOTES: 09/27/18 TAKING METOPROLOL TARTRATE 50 MG TABLET 1 TABLET WITH FOOD ORALLY TWICE A DAY, NOTES: 09/27/18 TAKING METFORMIN HCL ER 500 MG TABLET EXTENDED RELEASE 24 HOUR 1 TABLET WITH EVENING MEAL ORALLY BID, NOTES: 09/27/18 TAKING COLACE 100 MG CAPSULE 1 CAPSULE NEEDED ORALLY ONCE A DAY, NOTES: 09/27/18 TAKING FERROUS SULFATE 325 (65 FE) MG TABLET DELAYED RELEASE 1 TABLET ORALLY ONCE A DAY, NOTES: 09/27/18 TAKING AZELASTINE HCL 0.1 % SOLUTION 1 PUFF IN EACH NOSTRIL NASALLY TWICE A DAY, NOTES: 09/27/18 TAKING PLAVIX 75 MG TABLET 1 TABLET ORALLY ONCE A DAY, NOTES: 09/27/18 TAKING ALPHAGAN P 0.1 % SOLUTION 1 DROP INTO AFFECTED EYE OPHTHALMIC THREE TIMES A DAY, NOTES: 10/03/18 TAKING LATANOPROST 0.005 % SOLUTION 1 DROP INTO AFFECTED EYE IN THE EVENING OPHTHALMIC ONCE A DAY, NOTES: 10/03/18 TAKING INVOKANA 300 MG TABLET 1 TABLET ORALLY ONCE A DAY, NOTES: 09/27/18 TAKING GLYBURIDE 2.5 MG TABLET 1 TABLET WITH BREAKFAST OR THE FIRST MAIN MEAL OF THE DAY ORALLY ONCE A DAY, NOTES: 09/27/18 TAKING ATORVASTATIN CALCIUM 80 MG TABLET 1 TABLET ORALLY ONCE A DAY, NOTES: 09/27/18 TAKING FOLIC ACID 1 MG TABLET 1 TABLET ORALLY ONCE A DAY, NOTES: 09/27/18 TAKING TOPIRAMATE 25 MG TABLET 1 TABLET ORALLY TWICE A DAY, NOTES: 09/27/18 TAKING BASAGLAR KWIKPEN 100 UNIT/ML SOLUTION PEN-INJECTOR SUBCUTANEOUS , NOTES: 09/27/18 TAKING ALBUTEROL SULFATE 1.25 MG/3ML NEBULIZATION SOLUTION 3 ML NEEDED INHALATION EVERY 8 HRS, NOTES: NONE LATELY TAKING SYMBICORT 160-4.5 MCG/ACT AEROSOL 2 PUFFS INHALATION TWICE A DAY, NOTES: 10/03/18 TAKING FLUOCINONIDE 0.05 % CREAM EXTERNALLY , NOTES: 10/03/18 TAKING ZANAFLEX 2 MG TABLET 1 TABLET NEEDED ORALLY TID, NOTES: 09/27/18 TAKING ADMELOG 100 UNIT/ML SOLUTION 10 UNITS SUBCUTANEOUS TID, NOTES: 10/03/18 NOT-TAKING TIZANIDINE HCL 2 MG CAPSULE 1 CAPSULE NEEDED ORALLY THREE TIMES A DAY, NOTES: DUPLICATE MEDICATION LIST REVIEWED AND RECONCILED WITH THE PATIENT PAST MEDICAL HISTORY 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 EPISODES - STABLE MIGRAINE HEADACHES CHRONIC LOW BACK PAIN DIABETES, TYPE II ANEMIA COPD HYPERTENSION HIGH CHOLESTEROL BILATERAL CARPAL TUNNEL PSORIASIS ALLERGIES IV DYE: DIFFICULTY BREATHING: ALLERGY CYCLOBENZAPRINE: NAUSEA/VOMITING: SIDE EFFECTS SURGICAL HISTORY DOUBLE BYPASS HEART SURGERY AT [facility] 06/2009 C-SECTIONS X 3 CARDIAC STENTS X 3 FAMILY HISTORY FATHER: ALIVE 72 YRS, DIAGNOSED WITH DIABETES, HYPERTENSION, HEART DISEASE, STROKE, CANCER MOTHER: ALIVE 70 YRS, DIAGNOSED WITH DIABETES, HEART DISEASE SOCIAL HISTORY GENERAL: TOBACCO USE ARE YOU A:FORMER SMOKER SMOKED 1 PPD X 20 YEARS, QUIT 2008 LUNG CANCER SCREENING SMOKING STATUS:FORMER SMOKER ALCOHOL SCREENING DID YOU HAVE A DRINK CONTAINING ALCOHOL IN THE PAST YEAR?YES HOW OFTEN DID YOU HAVE A DRINK CONTAINING ALCOHOL IN THE PAST YEAR?MONTHLY OR LESS (1 POINT) HOW MANY DRINKS DID YOU HAVE ON A TYPICAL DAY WHEN YOU WERE DRINKING IN THE PAST YEAR?1 OR 2 (0 POINTS) HOW OFTEN DID YOU HAVE SIX OR MORE DRINKS ON ONE OCCASION IN THE PAST YEAR?NEVER (0 POINTS) POINTS1 INTERPRETATIONNEGATIVE RECREATIONAL DRUG USE DRUG USE?YES HOW OFTEN AND HOW MUCH? SMOKES MARIJUANA ON RARE OCCASIONS (LESS THAN ONCE A MONTH) CAFFEINE CAFFEINE USE?YES HOW OFTEN AND HOW MUCH? 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 PT HAS HEARING IMPAIRMENT, HEARING AID IS BROKEN. HEARING IMPAIRED?YES PT HAS HEARING AID RIGHT EAR, STATES IS BROKEN VISION IMPAIRED?NO WEARS GLASSES, HAS CATARACTS COGNITIVELY IMPAIRED?NO READINESS TO LEARN?YES LEARNING PREFERENCES?NO NO PREFERENCES OCCUPATION: UNEMPLOYED. DIET: NO CONCENTRATED SWEETS, NO RED MEAT. EXERCISE: WALKS. MARITAL STATUS: . OTHERS AT HOME: CHILD, AND A BOYFRIEND. PAIN CLINIC PFS, CLERGY, PUBLIC HEALTH REFERRALS HAS THE PATIENT BEEN EDUCATED REGARDING HIS/HER PLAN OF CARE?YES USES HEAT FOR PAIN SOMETIMES IN HER BACK. HAS THE PATIENT BEEN EDUCATED REGARDING PAIN, THE RISK FOR PAIN, THE IMPORTANCE OF EFFECTIVE PAIN MANAGEMENT, AND THE PAIN ASSESSMENT PROCESS?YES ADVANCE DIRECTIVE ADVANCE DIRECTIVE DISCUSSED WITH PATIENT:YES NO ADVANCED DIRECTIVES, DECLINES INFORMATION AT THIS TIME REVIEWED 07/20/18 NL. HOSPITALIZATION/MAJOR DIAGNOSTIC PROCEDURE WITH SURGERIES REVIEW OF SYSTEMS REVIEWED BY: PROVIDER: . CONSTITUTIONAL: ANY CHANGE IN YOUR MEDICAL CONDITION? NO . CHILLS NO . FEVER NO . INFECTION: DO YOU HAVE NEW INFECTIONS? NO . DO YOU HAVE HISTORY OF MRSA? NO . MUSCULOSKELETAL: ANY NEW PATTERNS OF PAIN OR NUMBNESS? NO . GASTROENTEROLOGY: ANY NEW CHANGE IN BOWEL CONTROL? NO . GENITOURINARY: ANY NEW CHANGE IN BLADDER CONTROL? NO . IS THERE A CHANCE YOU COULD BE ? NO . HEMATOLOGY/LYMPH: DO YOU TAKE ANY BLOOD THINNERS? (FOR EXAMPLE- COUMADIN, PLAVIX, AGGRENOX, PLATEL, PRADAXA, OR XARELTO) YES, PLAVIX 09/27/18 . WHEN WAS YOUR LAST DOSE? DATE: TIME: . NEUROLOGY: HAVE YOU FALLEN IN THE PAST 12 MONTHS? NO . ANY NEW EXTREMITY NUMBNESS OR WEAKNESS? NO . CARDIOLOGY: DO YOU HAVE A PACEMAKER OR DEFIBRILLATOR? NO . RESPIRATORY: HAVE YOU BEEN SICK IN THE PAST WEEK? NO . FEVER NO . FLU LIKE SYMPTOMS? NO . COUGH NO . INTEGUMENTARY: DO YOU HAVE ANY RASHES OR OPEN SORES? YES, PSORIASIS . ALLERGIC/IMMUNO: ARE YOU ALLERGIC TO IV DYE? YES . ANY NEW ALLERGIES? NO . PSYCHIATRIC: DO YOU HAVE THOUGHTS OF HURTING YOURSELF OR SOMEONE ELSE? NO . ARE YOU ABUSED, NEGLECTED, OR IN AN UNSAFE ENVIRONMENT? NO . ENDOCRINOLOGY: ARE YOU DIABETIC? YES . OTHER: DO YOU NEED ANY PRESCRIPTIONS? NO . IF YES, PLEASE LIST: ____ . ANY NEW PROBLEMS WITH YOUR MEDICATIONS? NO . WHEN DID YOU LAST EAT? 10/03/18 1600 . WHEN DID YOU LAST DRINK? 10/03/18 2300 . WHAT DID YOU LAST DRINK? KOOLAID . NAME OF PERSON DRIVING YOU HOME? 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 DO YOU HAVE ANY OTHER QUESTIONS OR CONCERNS NO . VITAL SIGNS WT 162.4 LBS, HT 62 IN, BMI 29.70 INDEX, BP 149/80 MM HG, HR 90 /MIN, RR 16 /MIN, TEMP 97.5 F, OXYGEN SAT % 96%, NA INITIALS SC 10:13, REVIEWED BY: KG. ASSESSMENTS SACROILIITIS, NOT ELSEWHERE CLASSIFIED - M46.1 (PRIMARY) PROCEDURES PN SI PRE PROCEDURE DIAGNOSIS SACROILIITIS, SACROILIAC JOINT DYSFUNCTION POST PROCEDURE DIAGNOSIS SACROILIITIS, SACROILIAC JOINT DYSFUNCTION PROCEDURE BILATERAL SACROILIAC JOINT BLOCK SURGEON DR. MARGE BRAVO WEBSITE DESIGNER NONE ANESTHESIA LOCAL PRE PROCEDURE NOTE PATIENT WITH HISTORY OF CHRONIC LOW BACK PAIN. I EVALUATED THE PATIENT AND REVIEWED THE CHART. I WENT OVER THE RISKS, ALTERNATIVES, AND BENEFITS ASSOCIATED WITH THIS PROCEDURE. THE PATIENT WOULD LIKE TO PROCEED AND GAVE CONSENT TO PERFORM THE PROCEDURE. THE PATIENT DENIES UNEXPLAINABLE WEIGHT LOSS, FEVER, CHILLS, OR NEW CHANGES IN URINARY OR BOWEL CONTROL DESCRIPTION OF PROCEDURE THE PATIENT WAS BROUGHT TO THE PROCEDURE ROOM AND PLACED IN THE PRONE POSITION. THE LUMBOSACRAL AREA WAS CLEANED WITH CHLORAPREP SOLUTION AND DRAPED ASEPTICALLY. THE PROCEDURE WAS DONE UNDER STERILE CONDITIONS. I CHECKED LATERALITY AND THE LEVEL WHERE THE PROCEDURE WAS GOING TO BE PERFORMED WITH THE PATIENT AND THE SUPPORTING STAFF AT THE MOMENT OF THE TIME OUT IN THE PROCEDURE ROOM. UNDER FLUOROSCOPIC GUIDANCE, TARGET POINT WAS SELECTED AT THE LOWER BORDER OF THE RIGHT AND LEFT SACROILIAC JOINT. TARGET POINT WAS SELECTED AFTER MEDIAL ROTATION AND TILT OF THE MAGNIFIER OF THE C-ARM. LIDOCAINE WAS USED TO NUMB THE SKIN AND SUBCUTANEOUS TISSUE BELOW IT. A SPINAL NEEDLE, 22-GAUGE, WAS ADVANCED UNDER FLUOROSCOPIC GUIDANCE AND FOLLOWING PATIENT FEEDBACK UNTIL THE TARGET AREA WAS TOUCHED. THE POSITION OF THE NEEDLE WAS VERIFIED WITH AP AND LATERAL VIEWS. NO DYE WAS USED. A SOLUTION OF 20 MG OF KENALOG WAS INJECTED IN RIGHT AND LEFT JOINT WITH 3 ML OF BUPIVACAINE 0.125%. THERE WAS NO EVIDENCE OF BLOOD, PARESTHESIA OR CEREBROSPINAL FLUID DURING THE PROCEDURE. THE PATIENT WAS SENT TO THE RECOVERY ROOM. THE PATIENT WAS MOVING THE EXTREMITIES AND DOING WELL. THERE WAS NO COMPLICATION DURING THE PROCEDURE. FLUOROSCOPY TIME WAS 8 SECONDS POST PROCEDURE NOTE THE PATIENT WILL BE SEEN IN A FOLLOW UP IN THE NEXT FEW WEEKS. INSTRUCTIONS WERE GIVEN, QUESTIONS WERE ANSWERED, AND THE PATIENT EXPRESSED UNDERSTANDING AND AGREED WITH THE PLAN. I, IRVING MCKEON, DOCUMENTED THE ABOVE INFORMATION ACTING A SCRIBE FOR DR. BRAVO. I HAVE REVIEWED THE ABOVE DOCUMENT, WRITTEN BY IRVING DIEHLIBKaya AND I VERIFY THAT IT IS ACCURATE. DIAGNOSTIC IMAGING [facility] FLUORO GUIDANCE (PAIN)[id number] PROCEDURE CODES 6045F RADXPS IN END [id number] PXD [id number] INJECT SACROILIAC JOINT, MODIFIERS: 50 DISPOSITION & COMMUNICATION FOLLOW UP 3 WEEKS ELECTRONICALLY SIGNED BY MARGE BRAVO MD, MD ON 10/15/2018 AT 06:33 PM EST DISCLAIMER : THIS IS A VISIT SUMMARY EXTRACTED FROM THE [employer] CHART. IT IS NOT A COPY OF THE [employer] PROGRESS NOTE. MTDD
== END ==
LOC: M PAIN 10:00
PROVIDERS: ATTEND Anesthesiology
DX: G89.29 Other chronic pain (principal); M46.1 Sacroiliitis, not elsewhere classified; M53.88 Other specified dorsopathies, sacral and sacrococcygeal region; E11.9 Type 2 diabetes mellitus without complications; J44.9 Chronic obstructive pulmonary disease, unspecified; G43.909 Migraine, unspecified, not intractable, without status migrainosus; I10 Essential (primary) hypertension; E78.00 Pure hypercholesterolemia, unspecified; L40.9 Psoriasis, unspecified; Z79.01 Long term (current) use of anticoagulants; Z79.82 Long term (current) use of aspirin; Z79.84 Long term (current) use of oral hypoglycemic drugs; Z79.899 Other long term (current) drug therapy; Z88.8 Allergy status to other drugs, medicaments and biological substances; Z91.041 Radiographic dye allergy status; Z86.79 Personal history of other diseases of the circulatory system; Z87.891 Personal history of nicotine dependence
CPT/HCPCS: 27096; J3301

== ENCOUNTER → 2019-05-18 | Outpatient (CLI) | payer OTHER ==
[~2019-05-18] MED LIST changes: -AZIT500T2 PO; +AZIT500T5 PO; -BUPIVACAINE HCL 0.25% 30 ML VIAL As Ordered ONE; -LIDOCAINE 1% SDV INJ 30 ML VIAL As Ordered ONE; -TRIAMCINOLONE ACETONIDE SUSP 40 MG/ML VIAL (J3301) As Ordered ONE; +ZONI100C17 PO; -ZONI100C2 PO; +ZONI50CA11 PO; -ZONI50CA3 PO; -diazePAM 5 MG TAB As Ordered ONE; -diphenhydrAMINE 25 MG CAP As Ordered ONE; -oxyCODONE 5MG TAB As Ordered ONE
--- NOTE | 2019-06-19 11:41 | ECWPNPC ---
PATIENT NAME: TOMMY DIAZ : 1970 GENDER: FEMALE VISIT DATE: 05/18/2019 DISCHARGE DATE: 05/18/19 1156 VISIT LOCKED DATE TIME: PHYSICIAN: EDMOND BEGUM RESOURCE: EDMOND BEGUM REASON FOR APPOINTMENT 1. POST PROC HISTORY OF PRESENT ILLNESS HISTORY OF PRESENT ILLNESS: HERE FOR POST PROCEDURE F/U.HAD BILAT. SIJ ON 10-04-18.REPORTING IMPROVEMENT IN PAIN IN THIS REGION THAT CONTINUES TODAY.PAIN IS ACROSS LOW BACK WITH RADIATION DOWN LEFT LEG.RATING PAIN VAS 8/10.PAIN AWAKENS HER FROM SLEEP.DESCRIBES PAIN INTERMITTENT ,ACHING AND SHARP.DISCUSSED MEDICATION AND TREATMENT OPTIONS. PAIN THE PATIENT DESCRIBES THE PAIN... THE PATIENT DESCRIBES THE PAIN... FALL RISK SCREENING: SCREENING :NO FALLS REPORTED IN THE LAST YEAR CURRENT MEDICATIONS TAKING GLIPIZIDE 5 MG TABLET 1 TABLET ORALLY ONCE A DAY TAKING ZONISAMIDE 50 MG CAPSULE 1 CAPSULE ORALLY 50 MGS IN A.M./100 MGS Q HS TAKING ASPIR-81 81 MG TABLET DELAYED RELEASE 1 TABLET ORALLY ONCE A DAY TAKING ZOLOFT 100 MG TABLET 1 TABLET ORALLY ONCE A DAY TAKING METOPROLOL TARTRATE 50 MG TABLET 1 TABLET WITH FOOD ORALLY TWICE A DAY TAKING METFORMIN HCL ER 500 MG TABLET EXTENDED RELEASE 24 HOUR 1 TABLET WITH EVENING MEAL ORALLY BID TAKING COLACE 100 MG CAPSULE 1 CAPSULE NEEDED ORALLY ONCE A DAY TAKING FERROUS SULFATE 325 (65 FE) MG TABLET DELAYED RELEASE 1 TABLET ORALLY ONCE A DAY TAKING AZELASTINE HCL 0.1 % SOLUTION 1 PUFF IN EACH NOSTRIL NASALLY TWICE A DAY TAKING PLAVIX 75 MG TABLET 1 TABLET ORALLY ONCE A DAY TAKING ALPHAGAN P 0.1 % SOLUTION 1 DROP INTO AFFECTED EYE OPHTHALMIC THREE TIMES A DAY TAKING LATANOPROST 0.005 % SOLUTION 1 DROP INTO AFFECTED EYE IN THE EVENING OPHTHALMIC ONCE A DAY TAKING INVOKANA 300 MG TABLET 1 TABLET ORALLY ONCE A DAY TAKING ATORVASTATIN CALCIUM 80 MG TABLET 1 TABLET ORALLY ONCE A DAY TAKING FOLIC ACID 1 MG TABLET 1 TABLET ORALLY ONCE A DAY TAKING TOPIRAMATE 25 MG TABLET 1 TABLET ORALLY TWICE A DAY TAKING BASAGLAR KWIKPEN 100 UNIT/ML SOLUTION PEN-INJECTOR SUBCUTANEOUS TAKING ALBUTEROL SULFATE 1.25 MG/3ML NEBULIZATION SOLUTION 3 ML NEEDED INHALATION EVERY 8 HRS TAKING SYMBICORT 160-4.5 MCG/ACT AEROSOL 2 PUFFS INHALATION TWICE A DAY TAKING FLUOCINONIDE 0.05 % CREAM EXTERNALLY TAKING ZANAFLEX 2 MG TABLET 1 TABLET NEEDED ORALLY TID TAKING ADMELOG 100 UNIT/ML SOLUTION 10 UNITS SUBCUTANEOUS TID TAKING VITAMIN D3 2000 UNIT CAPSULE 1 CAPSULE ORALLY ONCE A DAY NOT-TAKING GLYBURIDE 2.5 MG TABLET 1 TABLET WITH BREAKFAST OR THE FIRST MAIN MEAL OF THE DAY ORALLY ONCE A DAY NOT-TAKING TIZANIDINE HCL 2 MG CAPSULE 1 CAPSULE NEEDED ORALLY THREE TIMES A DAY, NOTES: DUPLICATE MEDICATION LIST REVIEWED AND RECONCILED WITH THE PATIENT PAST MEDICAL HISTORY 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 EPISODES - STABLE MIGRAINE HEADACHES CHRONIC LOW BACK PAIN DIABETES, TYPE II ANEMIA COPD HYPERTENSION HIGH CHOLESTEROL BILATERAL CARPAL TUNNEL PSORIASIS ALLERGIES IV DYE: DIFFICULTY BREATHING - ALLERGY CYCLOBENZAPRINE: NAUSEA/VOMITING - SIDE EFFECTS TIZANIDINE : NAUSEA/VOMITING - SIDE EFFECTS SURGICAL HISTORY DOUBLE BYPASS HEART SURGERY AT [facility] 06/2009 C-SECTIONS X 3 CARDIAC STENTS X 3 HEART ANGIOPLASTY AT [facility] AFTER HEART ATTACK 12/2018 FAMILY HISTORY FATHER: ALIVE 72 YRS, DIAGNOSED WITH DIABETES, HYPERTENSION, UNSPECIFIED HEART DISEASE, UNSPECIFIED CEREBRAL ARTERY OCCLUSION WITH CEREBRAL INFARCTION, OTHER MALIGNANT NEOPLASM OF UNSPECIFIED SITE MOTHER: ALIVE 70 YRS, DIABETES, UNSPECIFIED HEART DISEASE SOCIAL HISTORY GENERAL: TOBACCO USE ARE YOU A:FORMER SMOKER SMOKED 1 PPD X 20 YEARS, QUIT 2008 OTHERS AT HOME: CHILD, AND A BOYFRIEND. EDUCATION LEVEL OF EDUCATION:NOT FINISHED HIGH SCHOOL DIET: NO CONCENTRATED SWEETS, NO RED MEAT. LANGUAGE LANGUAGES SPOKEN:EGYPTIAN RECREATIONAL DRUG USE DRUG USE?YES HOW OFTEN AND HOW MUCH? SMOKES MARIJUANA ON RARE OCCASIONS (LESS THAN ONCE A MONTH) EXERCISE: WALKS. LEARNING BARRIERS / SPECIAL NEEDS BARRIERS TO LEARNING? PT HAS HEARING IMPAIRMENT, HEARING AID IS BROKEN. HEARING IMPAIRED?YES PT HAS HEARING AID RIGHT EAR, STATES IS BROKEN VISION IMPAIRED?NO WEARS GLASSES, HAS CATARACTS COGNITIVELY IMPAIRED?NO READINESS TO LEARN?YES LEARNING PREFERENCES?NO NO PREFERENCES LUNG CANCER SCREENING SMOKING STATUS:FORMER SMOKER PAIN CLINIC PFS, CLERGY, PUBLIC HEALTH REFERRALS HAS THE PATIENT BEEN EDUCATED REGARDING HIS/HER PLAN OF CARE?YES USES HEAT FOR PAIN SOMETIMES IN HER BACK. HAS THE PATIENT BEEN EDUCATED REGARDING PAIN, THE RISK FOR PAIN, THE IMPORTANCE OF EFFECTIVE PAIN MANAGEMENT, AND THE PAIN ASSESSMENT PROCESS?YES CAFFEINE CAFFEINE USE?YES HOW OFTEN AND HOW MUCH? 1/2 CUP DAILY ADVANCE DIRECTIVE ADVANCE DIRECTIVE DISCUSSED WITH PATIENT:YES NO ADVANCED DIRECTIVES, DECLINES INFORMATION AT THIS TIME MARITAL STATUS: . ALCOHOL SCREENING DID YOU HAVE A DRINK CONTAINING ALCOHOL IN THE PAST YEAR?YES HOW OFTEN DID YOU HAVE SIX OR MORE DRINKS ON ONE OCCASION IN THE PAST YEAR?NEVER (0 POINTS) HOW MANY DRINKS DID YOU HAVE ON A TYPICAL DAY WHEN YOU WERE DRINKING IN THE PAST YEAR?1 OR 2 (0 POINTS) HOW OFTEN DID YOU HAVE A DRINK CONTAINING ALCOHOL IN THE PAST YEAR?MONTHLY OR LESS (1 POINT) POINTS1 INTERPRETATIONNEGATIVE OCCUPATION: UNEMPLOYED. REVIEWED 07/20/18 NLREVIEWED WITH PT 05/18/19 1119 NLJ. HOSPITALIZATION/MAJOR DIAGNOSTIC PROCEDURE WITH SURGERIES REVIEW OF SYSTEMS REVIEWED BY: PROVIDER: EDMOND MELARA . CONSTITUTIONAL: ANY CHANGE IN YOUR MEDICAL CONDITION? NO . CHILLS NO . FEVER NO . INFECTION: DO YOU HAVE NEW INFECTIONS? NO . DO YOU HAVE HISTORY OF MRSA? NO . MUSCULOSKELETAL: ANY NEW PATTERNS OF PAIN OR NUMBNESS? NO- STATES SIJ DONE IN SEPTEMBER WORKED WELL AND STATES SHE CONTINUES TO FELL PAIN RELIEF, STATES SHE HAS NUMBNESS AND TINGLING DOWN LEFT LEG OCCASIONALLY . GASTROENTEROLOGY: ANY NEW CHANGE IN BOWEL CONTROL? NO . GENITOURINARY: ANY NEW CHANGE IN BLADDER CONTROL? NO . IS THERE A CHANCE YOU COULD BE ? NO . HEMATOLOGY/LYMPH: DO YOU TAKE ANY BLOOD THINNERS? (FOR EXAMPLE- COUMADIN, PLAVIX, AGGRENOX, PLATEL, PRADAXA, OR XARELTO) YES- PLAVIX . WHEN WAS YOUR LAST DOSE? DATE:05/17/19 TIME: 0930 . NEUROLOGY: HAVE YOU FALLEN IN THE PAST 12 MONTHS? NO . ANY NEW EXTREMITY NUMBNESS OR WEAKNESS? NO . CARDIOLOGY: DO YOU HAVE A PACEMAKER OR DEFIBRILLATOR? NO . RESPIRATORY: HAVE YOU BEEN SICK IN THE PAST WEEK? NO . FEVER NO . FLU LIKE SYMPTOMS? NO . COUGH NO . INTEGUMENTARY: DO YOU HAVE ANY RASHES OR OPEN SORES? YES- SORES RELATED TO PSORIASIS ON HER BACK . ALLERGIC/IMMUNO: ARE YOU ALLERGIC TO IV DYE? YES . ANY NEW ALLERGIES? NO . PSYCHIATRIC: DO YOU HAVE THOUGHTS OF HURTING YOURSELF OR SOMEONE ELSE? NO . ARE YOU ABUSED, NEGLECTED, OR IN AN UNSAFE ENVIRONMENT? NO . ENDOCRINOLOGY: ARE YOU DIABETIC? YES . OTHER: DO YOU NEED ANY PRESCRIPTIONS? YES . IF YES, PLEASE LIST: ____STATES SHE NEEDS SOMETHING OTHER THAN TIZANIDINE, STATES TIZANIDNE MAKES HER VOMIT . ANY NEW PROBLEMS WITH YOUR MEDICATIONS? NO . WHEN DID YOU LAST EAT? ____ . WHEN DID YOU LAST DRINK? ____ . WHAT DID YOU LAST DRINK? ____ . NAME OF PERSON DRIVING YOU HOME? ____ . DO YOU HAVE ANY OTHER QUESTIONS OR CONCERNS NO . VITAL SIGNS WT 187.2 LBS, HT 62 IN, BMI 34.24 INDEX, BP 123/72 MM HG, HR 69 /MIN, RR 18 /MIN, TEMP 96.7 F, OXYGEN SAT % 99%, SAFE IN ENV? (Y/N) YES, NA INITIALS SC 11:14, REVIEWED BY: RUSTAM. EXAMINATION GENERAL EXAMINATION: GENERAL AWAKE,ALERT ,PLEASANT . PSYCH AFFECT NORMAL . LUNGS: LUNG KUNZ ARE CLEAR TO AUSCULTATION BILATERALLY. GOOD MOVEMENT OF AIR . HEART: S1, S2 IN A REGULAR RATE AND RHYTHM. NO SIGNIFICANT MURMURS, RUBS OR GALLOPS NOTED . ASSESSMENTS SACROILIITIS - M46.1 (PRIMARY) INTERVERTEBRAL DISC DISORDER WITH RADICULOPATHY OF LUMBOSACRAL REGION - M51.17 TREATMENT SACROILIITIS REFERRAL TO:[facility] [place] PALLIATIVE CAREUNKNOWN REASON:CHRONIC LBP W HX OF MULTIPLE COMORBIDITIES-PLAVIX HX CABG PROCEDURE CODES FA211 ESTABILISHED PATIENT [facility] FACILITY CHARGE DISPOSITION & COMMUNICATION FOLLOW UP NO F/U (REASON: [facility]ALLIATIVE CARE) ELECTRONICALLY SIGNED BY KELTON BENOIT ON 06/07/2019 AT 10:55 AM EDT DISCLAIMER : THIS IS A VISIT SUMMARY EXTRACTED FROM THE [employer] CHART. IT IS NOT A COPY OF THE [employer] PROGRESS NOTE. YULIANA
== END ==
LOC: M PAIN 10:45
PROVIDERS: ATTEND Nurse Practitioner Family
DX: M46.1 Sacroiliitis, not elsewhere classified (principal); M51.17 Intervertebral disc disorders with radiculopathy, lumbosacral region; G43.909 Migraine, unspecified, not intractable, without status migrainosus; E11.9 Type 2 diabetes mellitus without complications; D50.9 Iron deficiency anemia, unspecified; J44.9 Chronic obstructive pulmonary disease, unspecified; I10 Essential (primary) hypertension; Z87.891 Personal history of nicotine dependence; Z88.8 Allergy status to other drugs, medicaments and biological substances; Z91.041 Radiographic dye allergy status; Z79.01 Long term (current) use of anticoagulants; Z79.82 Long term (current) use of aspirin; Z79.4 Long term (current) use of insulin; Z79.899 Other long term (current) drug therapy

== ENCOUNTER 2020-06-25 14:47 | Emergency (ER) | payer OTHER ==
[~2020-06-25] VITALS: Ht 157.5 cm; Wt 73.6 kg
--- NOTE | 2020-06-25 15:15 | REP ---
INDICATION: CHEST PAIN. COMPARISON: 05/19/2017. TECHNIQUE: SINGLE PORTABLE AP VIEW OF THE CHEST WAS PERFORMED. FINDINGS: THERE IS NO ACUTE INFILTRATE OR PULMONARY EDEMA. LUNGS ARE CLEAR. HEART IS NOT SIGNIFICANTLY ENLARGED. MEDIASTINAL SILHOUETTE IS UNREMARKABLE. THE VISUALIZED OSSEOUS STRUCTURES ARE INTACT. IMPRESSION: NO ACUTE PULMONARY DISEASE.Sternotomy wires are again noted. <Electronically signed by Filiberto Sanabria > 06/25/20 [id number]
[2020-06-25 15:45] LABS: BASO # 0.1 10^3/uL (0.0-0.2); BASO % 0.5 % (0.0-1.0); EOS # 0.2 10^3/uL (0.0-0.5); EOS % 2.4 % (0.0-3.0); HEMATOCRIT 43.2 % (36.0-47.0); HEMOGLOBIN 14.1 g/dl (12.0-15.5); LYMPH # 2.1 10^3/uL (1.5-5.0); LYMPH % 21.6 % (24.0-44.0); MEAN CORPUSCULAR HEMOGLOBIN 29.9 pg (27.0-33.0); MEAN CORPUSCULAR HGB CONC 32.6 g/dl (32.0-36.5); MEAN CORPUSCULAR VOLUME 91.5 fl (80.0-96.0); MONO # 0.7 10^3/uL (0.0-0.8); MONO % 7.7 % (0.0-5.0); NEUTROPHILS # 6.5 10^3/uL (1.5-8.5); NEUTROPHILS % 67.6 % (36.0-66.0); PLATELET COUNT, AUTOMATED 275 10^3/uL (150-450); RED BLOOD COUNT 4.72 10^6/uL (4.00-5.40); WHITE BLOOD COUNT 9.6 10^3/uL (4.0-10.0)
[2020-06-25 16:00] LABS: PROTHROMBIN TIME 13.4 SECONDS (12.5-14.3)
[2020-06-25 16:01] LABS: PARTIAL THROMBOPLASTIN TIME 29.5 SECONDS (24.2-38.5)
[2020-06-25 16:06] LABS: ALBUMIN 3.9 GM/DL (3.2-5.2); ALT/SGPT 29 U/L (12-78); BILIRUBIN,DIRECT 0.1 MG/DL (0.0-0.2); BILIRUBIN,TOTAL 0.5 MG/DL (0.2-1.0); BLOOD UREA NITROGEN 13 MG/DL (7-18); CALCIUM LEVEL 9.5 MG/DL (8.5-10.1); CARBON DIOXIDE LEVEL 28 MEQ/L (21-32); CHLORIDE LEVEL 107 MEQ/L (98-107); CREATININE FOR GFR 0.56 MG/DL (0.55-1.30); GLOMERULAR FILTRATION RATE > 60.0 (>51); GLUCOSE, FASTING 97 MG/DL (70-100); POTASSIUM SERUM 3.8 MEQ/L (3.5-5.1); SODIUM LEVEL 142 MEQ/L (136-145); TOTAL PROTEIN 7.1 GM/DL (6.4-8.2)
[2020-06-25] MEDS ORDERED: ACETAMINOPHEN 325 MG TAB PO ONE (17:00)
--- NOTE | 2020-06-25 18:44 | ECGEPIP ---
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
[2020-06-25 20:18] VITALS: BP 140/88
--- NOTE | 2020-06-27 07:54 | ECGEPIP ---
[facility] - ED Test Date: 2020-06-25 Pat Name: TOMMY DIAZ Department: Room: - Gender: Female Carbonator: dae : 1970 Requested By: AFSANEH Wong Order Number: [id number] Reading MD: Ludmila Mcfarlane Measurements Intervals [place] Rate: 65 P: 61 AL: 151 QRS: 83 QRSD: 96 T: 39 QT: 419 QTc: 438 Interpretive Statements SINUS RHYTHM INCOMPLETE RIGHT BUNDLE BRANCH BLOCK Electronically Signed on 06-27-2020 7:54:30 EDT by Ludmila Mcfarlane
== END 2020-06-25 20:20 | disposition home or self-care (01) ==
LOC: EDBD 14:47 → M ED 14:47
DX: R07.9 Chest pain, unspecified (principal); F17.200 Nicotine dependence, unspecified, uncomplicated; I10 Essential (primary) hypertension; I25.10 Atherosclerotic heart disease of native coronary artery without angina pectoris; E11.9 Type 2 diabetes mellitus without complications; J44.9 Chronic obstructive pulmonary disease, unspecified; Z79.82 Long term (current) use of aspirin; Z79.84 Long term (current) use of oral hypoglycemic drugs; Z79.899 Other long term (current) drug therapy; Z88.8 Allergy status to other drugs, medicaments and biological substances; Z91.041 Radiographic dye allergy status